=== PATIENT | female | born 1960 | race Caucasian/White ===

== ENCOUNTER 2025-03-13 12:15 | Emergency (ER) | payer OTHER, SELFPAY ==
[2025-03-13 12:30] VITALS: BP 135/79; PULSE 102; RESP 16; TEMP 36.2; O2SAT 98
--- NOTE | 2025-03-13 16:12 | ED_ITS ---
HPI - URI/Sore Throat General Chief Complaint: Upper Respiratory Infection Stated Complaint: COUGH/CONGESTION/HEADACHE/SORE THROAT/SORE GLANDS Time Seen by Provider: 03/13/25 12:45 Source: patient and RN notes reviewed Mode of arrival: ambulatory Limitations: no limitations History of Present Illness HPI Narrative: 64-year-old female presents Express Care complaining of upper respiratory symptoms for approximately 10 days. Patient says to recently got home from a cruise when she started developed symptoms while she was still there. Patient reports sinus congestion, left ear pain, cough, mucopurulent nasal discharge. Patient denies any chest pain, difficulty breathing, shortness of breath, fevers, body aches, chills, nausea, vomiting, diarrhea, abdominal pain, or any other symptoms. Related Data Allergies Allergy/AdvReac Type Severity Reaction Status Date / Time No Known Allergies Allergy Unverified 04/05/13 11:55 Review of Systems Review of Systems: CONSTITUTIONAL: Denies fever, chills, body aches, or sweats. EYES: Denies visual changes, redness, or discharge. ENT: Positive for congestion or otalgia. Negative for rhinorrhea or sore throat. CARDIOVASCULAR: Denies chest pain, palpitations, or edema. RESPIRATORY: Positive for cough. Negative for dyspnea or wheezing. GASTROINTESTINAL: Denies abdominal pain, nausea, vomiting, or diarrhea. GENITOURINARY: Denies dysuria or hematuria. SKIN: Denies rash or itching. MUSCULOSKELETAL: Denies back pain, joint pain, or myalgia. NEUROLOGIC: Denies headache, numbness, or weakness. PSYCHIATRIC: Denies anxiety or depression. All other systems reviewed are negative, except as documented in HPI. PMFSH Comments At the time of my signature, I reviewed and agree with the nursing past medical, surgical, social, and family history. There is no relevant family history pertinent to the patient complaint. Exam Narrative: GENERAL: This is a well-nourished, well-developed adult, in no apparent distress. They are non ill-appearing, nontoxic appearing. HEAD: normocephalic, atraumatic. EYES: Sclera clear/white. Vision is grossly intact. Conjunctiva normal bilaterally. Extraocular movements intact. EARS: External ears normal, auditory canals clear and without drainage, right TM without erythema or perforation. Left TM erythematous with suppuration and bulging. Left TM intact. Hearing grossly intact. NOSE: External nose normal with no obvious nasal discharge, nasal turbinates erythematous with exudate. No rhinorrhea. THROAT: Mucous membranes moist, posterior pharynx edematous without exudate. Uvula is midline. Postnasal drip present. NECK: Neck supple, non-tender without lymphadenopathy, masses or thyromegaly. CARDIOVASCULAR: Regular rate and rhythm without murmurs, gallops, or rubs. RESPIRATORY: Clear to auscultation. Breath sounds equal bilaterally. No wheezes, rales, or rhonchi. Respiratory rate normal, respiratory effort nonlabored, no respiratory distress SKIN: warm, Dry, intact with no suspicious lesions or rash, good texture and turgor. NEURO: awake, alert, and oriented to person, place and time. There were no obvious focal neurologic abnormalities. EXTREMITIES: No joint tenderness, effusion, or edema noted. BACK: Nontender without deformity. Course Course Emergency Course: Portions of this record may have been created with voice recognition software Level of Care: Express Care Visit Vital Signs Vital signs: Vital Signs Temperature 97.2 F L 03/13/25 12:30 Pulse Rate 102 H 03/13/25 12:30 Respiratory Rate 16 03/13/25 12:30 Blood Pressure 135/79 03/13/25 12:30 Pulse Oximetry 98 03/13/25 12:30 Temperature 97.2 F L 03/13/25 12:30 Pulse Rate 102 H 03/13/25 12:30 Respiratory Rate 16 03/13/25 12:30 Blood Pressure 135/79 03/13/25 12:30 Pulse Oximetry 98 03/13/25 12:30 MDM - URI/Sore Throat MDM Narrative Medical decision making narrative: Patient has left-sided otitis media. Given patient's length of symptoms is also likely patient has bacterial sinusitis. Will treat with Augmentin. Discussed physical exam findings. Advised supportive measures and signs/symptoms to go to the ER. Pt is appropriate for outpt treatment and f/u. Differential Diagnosis Differential diagnosis: Likely upper respiratory infection, otitis media, sinusitis and viral infection Discharge Plan Discharge Clinical Impression: Sinusitis Qualifiers: Sinusitis location: unspecified location Chronicity: acute Recurrence: non- recurrent Qualified Code(s): J01.90 - Acute sinusitis, unspecified Otitis media Qualifiers: Otitis media type: suppurative Chronicity: acute Laterality: left Recurrence: non-recurrent Spontaneous tympanic membrane rupture: without spontaneous rupture Qualified Code(s): H66.002 - Acute suppurative otitis media without spontaneous rupture of ear drum, left ear Patient Disposition: Home Condition: Stable Instructions: Sinusitis (ED), Ear Infection (ED) Additional Instructions: Take the antibiotics as directed and complete the course even if you start to feel better. You may use a Neti pot saline rinse 3 times a day with lukewarm distilled water Continue to take Tylenol or Motrin for pain. Use a humidifier or vaporizer at night. Drink plenty of water. 8-10 glasses per day. Use flonase 2 times per day for 5 days then as needed Take mucinex 2 times per day and be sure to take with 8oz of water. Follow up with Primary provider in 3-5 days Please go to the ER if he develops any difficulty breathing, worsening symptoms, or any other concerns Patient Language: Citizen Of [place] Prescriptions: New amoxicillin-pot clavulanate 875-125 mg tablet 1 tablet PO Q12H 7 Days Qty: 14 0RF Follow-up/Referrals: Cisco,ALYCE Phelps [Primary Care Provider] - Time of Disposition: 12:56
== END 2025-03-13 13:09 | disposition home or self-care (01) ==
PROVIDERS: PCP Physician Assistant
DX: J01.90 Acute sinusitis, unspecified (principal); H66.002 Acute suppurative otitis media without spontaneous rupture of ear drum, left ear
CPT/HCPCS: 99213; G0463

== ENCOUNTER 2025-03-31 09:49 | Emergency (ER) | payer OTHER, SELFPAY ==
--- NOTE | ~2025-03-31 | XR_ITS ---
XR chest 2V Ordering provider: Satya Taveras APRN History: 64 years Female with . cough, jeison, l/g temp x 3 weeks, diminished RLL, non smoker . Comparison: None. FINDINGS: MEDIASTINUM: The cardiac silhouette is not enlarged. LUNGS: No infiltrates, effusions or pneumothorax. OTHER: No free air under the diaphragm. Degenerative spine. IMPRESSION: No acute cardiopulmonary pathology. Reviewed, dictated and finalized at location A.
[2025-03-31 10:19] VITALS: BP 124/79; PULSE 102; RESP 16; TEMP 36.3; O2SAT 97
--- NOTE | 2025-03-31 10:19 | ED.URI ---
HPI - URI/Sore Throat General Chief Complaint: Upper Respiratory Infection Stated Complaint: Fever/chills/body aches/Strep Time Seen by Provider: 03/31/25 10:19 Source: patient and RN notes reviewed Mode of arrival: ambulatory Limitations: no limitations History of Present Illness HPI Narrative: 64-year-old female presents Express Care complaining of upper respiratory symptoms for approximately 3 weeks. Patient was recently here for ear infection and sinusitis Augmentin. Patient says she felt like her symptoms somewhat improved with not fully resolved. Over the last 3 days patient reports body aches, chills, fatigue, headache, congestion, thick nasal drainage, sore throat. Patient denies any chest pain, shortness of breath, fevers, nausea vomiting, diarrhea abdominal pain, any other symptoms. Patient took the Augmentin as directed this finish the course. Related Data Home Medications ?Medication ?Instructions ?Recorded ?Confirmed ?Last Taken ?Type escitalopram oxalate 10 mg tablet mg 03/31/25 Unknown History Allergies Allergy/AdvReac Type Severity Reaction Status Date / Time No Known Allergies Allergy Unverified 03/31/25 10:16 Review of Systems Review of Systems: CONSTITUTIONAL: Denies fever, chills, or sweats. Positive for fatigue EYES: Denies visual changes, redness, or discharge. ENT: Denies rhinorrhea, or otalgia. Positive for congestion and sore throat. CARDIOVASCULAR: Denies chest pain, palpitations, or edema. RESPIRATORY positive for cough. Negative for dyspnea or wheezing. GASTROINTESTINAL: Denies abdominal pain, nausea, vomiting, or diarrhea. GENITOURINARY: Denies dysuria or hematuria. SKIN: Denies rash or itching. MUSCULOSKELETAL: Denies back pain, joint pain, or myalgia. NEUROLOGIC: Denies numbness, or weakness. Positive for headaches. PSYCHIATRIC: Denies anxiety or depression. All other systems reviewed are negative, except as documented in HPI. PMFSH Comments At the time of my signature, I reviewed and agree with the nursing past medical, surgical, social, and family history. There is no relevant family history pertinent to the patient complaint. Exam Narrative: GENERAL: This is a well-nourished, well-developed adult, in no apparent distress. They are non ill-appearing, nontoxic appearing. HEAD: normocephalic, atraumatic. EYES: Sclera clear/white. Conjunctiva normal. Vision is grossly intact. Extraocular movements intact EARS: External ears normal, auditory canals clear and without drainage, TMs normal without perforation. Hearing grossly intact. NOSE: External nose normal with no obvious nasal discharge, nasal turbinates erythematous, no rhinorrhea. THROAT: Mucous membranes moist, posterior pharynx erythematous without redness no exudate. Uvula midline. Postnasal drip present. NECK: Neck supple, non-tender with cervical lymphadenopathy, no masses or thyromegaly. CARDIOVASCULAR: Regular rate and rhythm without murmurs, gallops, or rubs. RESPIRATORY: Lung sounds diminished right lower lobe. Otherwise lung sounds clear throughout. Breath sounds equal bilaterally. No wheezes, rales, or rhonchi. SKIN: warm, Dry, intact with no suspicious lesions or rash, good texture and turgor. NEURO: awake, alert, and oriented to person, place and time. There were no obvious focal neurologic abnormalities. EXTREMITIES: No joint tenderness, effusion, or edema noted. BACK: Nontender without deformity. Course Course Emergency Course: Portions of this record may have been created with voice recognition software Level of Care: Express Care Visit Vital Signs Vital signs: Vital Signs Temperature 97.4 F L 03/31/25 10:19 Pulse Rate 102 H 03/31/25 10:19 Respiratory Rate 16 03/31/25 10:19 Blood Pressure 124/79 03/31/25 10:19 Pulse Oximetry 97 03/31/25 10:19 Temperature 97.4 F L 03/31/25 10:19 Pulse Rate 102 H 03/31/25 10:19 Respiratory Rate 16 03/31/25 10:19 Blood Pressure 124/79 03/31/25 10:19 Pulse Oximetry 97 03/31/25 10:19 Reviewed MDM - URI/Sore Throat MDM Narrative Medical decision making narrative: Chest x-ray shows negative for any pneumonia or acute cardiopulmonary findings. Previous otitis media infection resolved. Patient states she never really got better after treatment. I suspect resistance and persistent sinusitis. Will go ahead and treat with levofloxacin. Discussed physical exam findings. Advised supportive measures and signs/symptoms to go to the ER. Pt is appropriate for outpt treatment and f/u. Differential Diagnosis Differential diagnosis: Likely upper respiratory infection, otitis media, sinusitis, viral infection and other (Pneumonia) Lab Data Attestation: I reviewed the patient's lab results. Labs: Lab Results 03/31/25 Range/Units 10:40 POC Influenza A Ag Negative (Negative) POC Influenza B Ag Negative (Negative) POC SARS CoV-2 Ag Negative (Negative) POC Grp A Strep Screen Negative (Negative) Imaging Data Radiologist's impression: ITS Impressions Chest X-Ray 03/31/25 11:09 IMPRESSION: No acute cardiopulmonary pathology. Critical Care Time Critical Care Time Critical Care Time: No Discharge Plan Discharge Clinical Impression: Sinusitis Qualifiers: Sinusitis location: unspecified location Chronicity: acute Recurrence: recurrent Qualified Code(s): J01.91 - Acute recurrent sinusitis, unspecified Patient Disposition: Home Condition: Stable Instructions: Antibiotic Form, Sinusitis (ED) Additional Instructions: Rapid strep, COVID, flu are negative today. A throat culture will be sent off and if it is positive for strep you will be contacted. Chest x-ray was negative for any evidence of pneumonia or any acute cardiopulmonary findings. Take the antibiotics as directed and complete the course even if you start to feel better. You may use a Neti pot saline rinse 3 times a day with lukewarm distilled water Continue to take Tylenol or Motrin for pain. Use a humidifier or vaporizer at night. Drink plenty of water. 8-10 glasses per day. Use flonase 2 times per day for 5 days then as needed Take mucinex 2 times per day and be sure to take with 8oz of water. Follow up with Primary provider in 3-5 days Please go to the ER if he develops any difficulty breathing, worsening symptoms, or any other concerns Patient Language: [place] Prescriptions: New levofloxacin 750 mg tablet 750 mg PO DAILY 7 Days Qty: 7 0RF No Action escitalopram oxalate 10 mg tablet Follow-up/Referrals: Amandeep,Ledy Gold APRN [Primary Care Provider] - Time of Disposition: 11:26
[2025-03-31 10:42] LABS: EDCOVIDSCREEN Negative (Negative); EDINFLUASCREEN Negative (Negative); EDINFLUBSCREEN Negative (Negative); EDSTREPNEGPOS1 Negative (Negative)
== END 2025-03-31 11:38 | disposition home or self-care (01) ==
PROVIDERS: PCP Nurse Practitioner Family
DX: J01.91 Acute recurrent sinusitis, unspecified (principal); Z20.822 Contact with and (suspected) exposure to COVID-19
CPT/HCPCS: 71046; 87081; 87426; 87804; 87880; 99213; G0463